=== PATIENT | male | born 1980 | race African-American/Black ===

== ENCOUNTER 2018-12-18 15:25 | Emergency (ER) | payer SELFPAY ==
[~2018-12-18] VITALS: Ht 182.9 cm; Wt 111.0 kg
[2018-12-18 16:17] VITALS: BP 139/92
[2018-12-18] MEDS ORDERED: FLUORESCEIN SODIUM 1MG/STRIP RIGHTEYE ONE (18:45)
[2018-12-18] MEDS ORDERED: TETRACAINE 0.5% OPHTH DROPS 4ML RIGHTEYE ONE (18:45)
== END 2018-12-18 20:37 | disposition home or self-care (01) ==
LOC: ER 15:25
DX: S02.40DA Maxillary fracture, left side, initial encounter for closed fracture (principal); S02.2XXA Fracture of nasal bones, initial encounter for closed fracture; W11.XXXA Fall on and from ladder, initial encounter; Y93.89 Activity, other specified; Y92.018 Other place in single-family (private) house as the place of occurrence of the external cause; R03.0 Elevated blood-pressure reading, without diagnosis of hypertension
CPT/HCPCS: 70486; 99284